=== PATIENT | female | born 1940 ===

== ENCOUNTER 2021-01-08 16:23 | Inpatient (IN) | payer MEDICARE, OTHER ==
[~2021-01-08] VITALS: Ht 167.6 cm; Wt 99.8 kg
--- NOTE | 2021-01-08 16:25 | NUR ---
BIB [facility]. Pt was triaged and waiting in [employer] gurney in the hallway because there are no ER beds available.
[2021-01-08 17:17] LABS: HEMATOCRIT 43.4 % (31.2-41.9); MEAN CORPUSCULAR HEMOGLOBIN 31.6 uug (24.7-32.8); MEAN CORPUSCULAR VOLUME 94.9 fL (75.5-95.3); PLATELET COUNT (AUTO) 170 K/uL (179-408)
[2021-01-08 17:19] LABS: CREATININE 1.1 mg/dL (0.6-1.3)
[2021-01-08 17:31] LABS: BILIRUBIN,DIRECT 0.2 mg/dL (0.0-0.2); BILIRUBIN,TOTAL 0.8 mg/dL (0.2-1.0); TOTAL PROTEIN, SERUM 6.9 g/dL (6.4-8.2)
[2021-01-08] MEDS ORDERED: PIPERACILLIN SODIUM/TAZOBACTAM 3.375 G in IV DEXTROSE 5% 50 ML IV ONE (17:45)
[2021-01-08] MEDS ORDERED: IV NORMAL SALINE 1000 ML BAG IV ONE (17:45)
[2021-01-08] MEDS ORDERED: PIPERACILLIN/TAZOBACTAM/D5W 50 ML IV ONE ×2 (17:54→23:31)
[2021-01-08] MEDS: IV NORMAL SALINE 1000 ML BAG IV ONE ×2 (19:30→22:30)
--- NOTE | 2021-01-08 19:40 | NUR ---
Dr Nathan alfordal patient.
[2021-01-08] MEDS ORDERED: MAGNESIUM HYDROXIDE 30 ML LIQUID UDC PO PRN (20:15)
[2021-01-08] MEDS ORDERED: ACETAMINOPHEN 325 MG TABLET PO PRN (20:15)
[2021-01-08] MEDS ORDERED: Z GUARD REMEDY PASTE 57 GM TUBE TOP PRN (20:15)
--- NOTE | 2021-01-08 21:32 | NUR ---
Report given to CATE Vences, patient will be going to med-surg room 302.
--- NOTE | 2021-01-08 22:19 | NUR ---
Pt. admitted to med-surg 302, under care of Dr. Evans. Belongs List completed
--- NOTE | 2021-01-08 22:30 | NUR ---
RECEIVED PATIENT VIA W/C FROM ER. PATIENT IS A/O X4. DENIES PAIN OR DISCOMFORT UPON ADMISSION. NO RESP. DISTRESS NOTED. DENIES ANY SOB AT THIS TIME. VS WNL. AFEBRILE. H/L INTACT AND NOTED TO LEFT UPPER ARM, #22 GAUGE. GENERALIZED RASH NOTED, PATIENT REFUSED PICTURES. ORIENTED TO ROOM AND CALL LIGHT. CALL LIGHT IN REACH. ALL NEEDS ATTENDED. WILL CONTINUE TO MONITOR AND ASSESS.
[2021-01-08] MEDS ORDERED: NAPR500T6 PO (23:01)
[2021-01-08] MEDS ORDERED: OMEP20CA15 PO (23:01)
[2021-01-08] MEDS ORDERED: OLME40TA12 PO (23:01)
[2021-01-08] MEDS ORDERED: METO-357 PO (23:01)
[2021-01-08] MEDS ORDERED: ALBU8.5H8 INH (23:01)
[2021-01-08] MEDS ORDERED: GABA-532 PO ×2 (23:01)
[2021-01-08] MEDS ORDERED: MIRA50TA PO (23:01)
[2021-01-08] MEDS ORDERED: TIOT18CA3 INH (23:01)
[2021-01-08] MEDS ORDERED: HYDR12.55 PO (23:01)
[2021-01-08] MEDS ORDERED: LETR2.5T PO (23:01)
[2021-01-08] MEDS ORDERED: FLUT1BLS13 IH (23:01)
[2021-01-08] MEDS: ENOXAPARIN SODIUM 40 MG/0.4 ML DISP.SYRIN SQ SCH (23:11)
[2021-01-08 23:37] VITALS: BP 125/54
[2021-01-08] MEDS: PIPERACILLIN SODIUM/TAZOBACTAM 3.375 G in IV DEXTROSE 5% 50 ML IV SCH (23:50)
[2021-01-09] MEDS: HYDROCODONE/APAP 5-325MG TABLET PO PRN ×3 (02:14→16:18)
[2021-01-09 04:00] VITALS: BP 128/72
--- NOTE | 2021-01-09 05:37 | NUR ---
PATIENT ASLEEP IN BED. VSS. CALL LIGHT IN REACH. ALL NEEDS ATTENDED. WILL CONTINUE TO MONITOR AND ASSESS.
[2021-01-09] MEDS: PIPERACILLIN SODIUM/TAZOBACTAM 3.375 G in IV DEXTROSE 5% 50 ML IV SCH ×4 (06:00→20:50)
[2021-01-09 06:33] LABS: HEMATOCRIT 39.7 % (31.2-41.9); MEAN CORPUSCULAR HEMOGLOBIN 31.2 uug (24.7-32.8); MEAN CORPUSCULAR VOLUME 95.8 fL (75.5-95.3); PLATELET COUNT (AUTO) 155 K/uL (179-408)
[2021-01-09] MEDS: PANTOPRAZOLE SODIUM 40 MG TABLET.DR PO SCH (06:44)
[2021-01-09 06:46] LABS: CREATININE 1.1 mg/dL (0.6-1.3); MAGNESIUM 2.3 mg/dL (1.8-2.4); PHOSPHOROUS 3.5 mg/dL (2.5-4.9); POTASSIUM 4.3 mmol/L (3.5-5.1)
[2021-01-09 06:59] LABS: THYROID STIMULATING HORMONE 1.165 mIU/mL (0.358-3.740)
--- NOTE | 2021-01-09 07:30 | NUR ---
Patient received sitting at the edge of bed, alert and oriented x4. No complaints of pain or discomforts at this time. No acute distress noted. Assisted patient to the bathroom to void and helped back into bed. Patient on RA with no SOB or difficulties breathing. Left AC IV is intact and patent with no redness or swelling noted. Personal belongings and call light within easy reach. Will continue to monitor.
--- NOTE | 2021-01-09 08:30 | NUR ---
Zosyn was re-dosed by pharmacy and 0600 dose was given at 0800.
--- NOTE | 2021-01-09 09:20 | NUR ---
Patient walked with PT in the hallway. Tolerated well.
[2021-01-09 12:00] VITALS: BP 147/91
[2021-01-09] MEDS ORDERED: VANCOMYCIN IV 1,250 MG in IV DEXTROSE 5% 250 ML IV SCH (12:00)
--- NOTE | 2021-01-09 12:10 | NUR ---
Informed Dr. Evans that home medications need to be reconciled and notified of BP 147/91 at this time with no new orders.
[2021-01-09 16:00] VITALS: BP 130/51
--- NOTE | 2021-01-09 18:19 | NUR ---
Again informed Dr. Evans that medication reconciliation needs to be completed. Will endorse to oncoming shift.
[2021-01-09 20:00] VITALS: BP 134/56
--- NOTE | 2021-01-09 20:00 | NUR ---
RECEIVED PATIENT AWAKE IN BED. A/O X3. FORGETFUL AT TIMES. VERY NEEDY AND DEMANDING TOWARDS STAFF. DENIES PAIN. ON RA SATING WELL. VS WNL. H/L INTACT AND PATENT, NOTED TO LEFT FA #20 GAUGE. CALL LIGHT IN REACH. ALL NEEDS ATTENDED. WILL CONTINUE TO MONITOR AND ASSESS.
[2021-01-09] MEDS: ONDANSETRON 4 MG/2 ML VIAL IV PRN (20:48)
[2021-01-09] MEDS ORDERED: MYRBETRIQ 50 MG PO SCH (21:00)
[2021-01-09] MEDS: ENOXAPARIN SODIUM 40 MG/0.4 ML DISP.SYRIN SQ SCH (21:11)
--- NOTE | 2021-01-09 22:00 | NUR ---
PATIENT AWAKE IN BED. VERY DEMANDING TOWARDS STAFF WITH CARE. ASSISTED PATIENT WITH NEEDS AND MADE COMFORTABLE. CALL LIGHT IN REACH. ALL NEEDS ATTENDED. WILL CONTINUE TO MONITOR AND ASSESS.
[2021-01-10] MEDS: PIPERACILLIN SODIUM/TAZOBACTAM 3.375 G in IV DEXTROSE 5% 50 ML IV SCH ×2 (02:50→08:34)
[2021-01-10 04:00] VITALS: BP 144/83
--- NOTE | 2021-01-10 05:15 | NUR ---
PATIENT CALLED TO THE NURSING STATION SAYING THAT SHE IS IN DISTRESS. WENT INTO THE ROOM, PATIENT IS QUIETLY SITTING ON THE EDGE OF BED AND ABRUPTLY STATES, "I WANT THIS THING OUT OF MY ARM, I AM TIRED OF ALL THESE MEDICATIONS." NO RESP. DISTRESS NOTED. PATIENT DENIES ANY SOB. ON RA SATING 98%. PATIENT REFUSED AM LAB DRAWS. PATIENT C/O NAUSEA AND OFFERED ZOFRAN AND ABRUPTLY STATED THAT SHE DOESN'T WANT ANY MEDICATIONS. REFUSED AM LAB DRAWS.
--- NOTE | 2021-01-10 05:36 | NUR ---
PATIENT REFUSING FOR IV. PATIENT INFORMED THAT SHE HAS ANTIBIOTICS TO BE GIVEN IN AM AND PATIENT STATED, "I DON'T CARE." TARYN REMOVED AND WILL NOTIFY . ALL NEEDS ATTENDED. Addendum: 01/10/21 at 0551 by JONELLE FULLER LVN CLARIFICATION-TARYN WILL "BE" REMOVED.
--- NOTE | 2021-01-10 05:51 | NUR ---
WENT INTO ROOM TO TAKE OUT PATIENTS IV HEPLOCK DEMANDED PER PATIENT. WHEN APPROACHED, PATIENT INFORMED THAT IV WILL BE TAKEN OUT REQUESTED. PATIENT BECAME AGITATED AND VERBALLY ABUSIVE TOWARDS NURSE, STATING THAT NO ONE HAS BEEN IN HER ROOM OR ATTENDED TO HER. NOTIFIED RN RELEASE AND TECHNICAL RECORDS CLERK. ALL NEEDS ATTENDED.
[2021-01-10] MEDS: PANTOPRAZOLE SODIUM 40 MG TABLET.DR PO SCH (06:00)
--- NOTE | 2021-01-10 07:30 | NUR ---
Patient received in bed, alert and oriented x4. Patient on RA with no SOB or difficulties breathing. No acute distress noted. Left AC IV is intact and patent with no redness or swelling noted. Personal belongings and call light within easy reach. Will continue to monitor.
[2021-01-10] MEDS ORDERED: NAPROXEN 500 MG TABLET PO SCH (08:00)
[2021-01-10] MEDS: HYDROCODONE/APAP 5-325MG TABLET PO PRN (08:45)
[2021-01-10] MEDS: ONDANSETRON 4 MG/2 ML VIAL IV PRN (08:45)
--- NOTE | 2021-01-10 08:45 | NUR ---
Patient complaining of nausea and pain. Zofran and norco administered as ordered. Scheduled medications also administered as ordered. Made comfortable. All needs met. No acute distress noted. Call lights and personal within easy reach. Will continue to monitor.
[2021-01-10] MEDS ORDERED: GABAPENTIN 100 MG CAPSULE PO SCH ×2 (09:00→18:00)
[2021-01-10] MEDS ORDERED: LOSARTAN POTASSIUM 50 MG TABLET PO SCH (09:00)
[2021-01-10] MEDS ORDERED: HYDROCHLOROTHIAZIDE 12.5 MG CAPSULE PO SCH (09:00)
[2021-01-10] MEDS ORDERED: Medication Not On Formulary EA (Mirabegron (Myrbetriq) 50 MG) PO SCH (09:00)
[2021-01-10] MEDS ORDERED: Medication Not On Formulary EA (Letrozole (Femara) 1 TAB) PO SCH (09:00)
[2021-01-10] MEDS ORDERED: LETROZOLE 2.5 MG PO SCH (09:00)
[2021-01-10] MEDS ORDERED: Medication Not On Formulary EA (Omeprazole 1 CAP) PO SCH (09:00)
[2021-01-10] MEDS ORDERED: FLUTICASONE/VILANTEROL 1 EACH BLST.W.DEV INH SCH (09:00)
[2021-01-10] MEDS ORDERED: METOPROLOL SUCCINATE XL 50 MG TAB.SR.24H PO SCH (09:00)
[2021-01-10] MEDS ORDERED: FLUTICASONE/SALMETEROL 500/50 EACH DISK.W.DEV IH SCH (09:00)
[2021-01-10 10:12] LABS: CREATININE 1.2 mg/dL (0.6-1.3); MAGNESIUM 2.5 mg/dL (1.8-2.4); PHOSPHOROUS 3.6 mg/dL (2.5-4.9)
--- NOTE | 2021-01-10 11:00 | NUR ---
Dr. Evans at bedside and informed patient of discharge for today. Patient expressed understanding and states that her daughter will pick her up from the hospital as soon as the orders are in.
[2021-01-10] MEDS ORDERED: CEPH500C2 PO (11:37)
[2021-01-10 11:45] VITALS: BP 140/71
--- NOTE | 2021-01-10 12:00 | NUR ---
Although I informed patient that Dr. Evans just put in discharge orders, patient's daughter is already waiting in her car for the patient. Patient informs me that she would like to leave [facility] and refuses wound pictures at this time and refuses last dose of ATB.
--- NOTE | 2021-01-10 12:30 | NUR ---
Brought down by wheelchair and picked up by daughter Helen. Patient was instructed on picking up her new prescription from the pharmacy and to follow up with her primary care physician within one week. Patient is aware of home health for PT with [facility]. Patient expressed understanding. Patient discharged in satisfactory condition with all her personal belongings including home medications.
== END 2021-01-10 12:45 | disposition home or self-care (01) | DRG 863 ==
LOC: ER 16:25 → TELE3 21:49 → MEDSURG3 22:33
PROVIDERS: ADMIT Student in an Organized Health Care Education/Training Program; ATTEND Student in an Organized Health Care Education/Training Program
DX: T81.49XA Infection following a procedure, other surgical site, initial encounter (principal); E44.1 Mild protein-calorie malnutrition; L03.115 Cellulitis of right lower limb; J44.9 Chronic obstructive pulmonary disease, unspecified; Y84.8 Other medical procedures as the cause of abnormal reaction of the patient, or of later complication, without mention of misadventure at the time of the procedure; Y92.009 Unspecified place in unspecified non-institutional (private) residence as the place of occurrence of the external cause; E86.0 Dehydration; G47.33 Obstructive sleep apnea (adult) (pediatric); I50.9 Heart failure, unspecified; Z20.822 Contact with and (suspected) exposure to COVID-19; G62.9 Polyneuropathy, unspecified; M20.42 Other hammer toe(s) (acquired), left foot; M20.41 Other hammer toe(s) (acquired), right foot; I87.2 Venous insufficiency (chronic) (peripheral); E66.9 Obesity, unspecified; Z68.35 Body mass index [BMI] 35.0-35.9, adult; Z87.891 Personal history of nicotine dependence
CPT/HCPCS: 36415; 70030-TC; 71045; 73590; 83605; 83735; 84100; 84443; 85025; 85730; 87040; 93005; 97161; A4663; A6209; G0378; J1650; J2405; J2543; J7030; J7050; J7060